=== PATIENT | female | born 1995 | race Two or more races ===

== ENCOUNTER 2020-12-14 02:11 | Emergency (ER) | payer MEDICAID, OTHER ==
[~2020-12-14] VITALS: Ht 162.6 cm; Wt 63.5 kg
[2020-12-14 03:20] VITALS: BP 135/79
[2020-12-14] MEDS ORDERED: SODIUM CHLORIDE 0.9% 3,000 ML IV ONE (03:30)
[2020-12-14 04:25] LABS: Basophils # (auto) 0 10 ^3/uL (0-0.2); Basophils % (auto) 0.3 % (0.0-2.0); Eosinophils # (auto) 0 10 ^3/uL (0-0.8); Eosinophils % (auto) 0.5 % (0.0-7.0); Hematocrit 46.1 % (36.0-46.0); Hemoglobin 15.7 g/dL (12.2-16.2); Lymphocytes # (auto) 2.2 10 ^3/uL (0.4-5.4); Lymphocytes % (auto) 25.5 % (10.0-50.0); Mean Corpuscular Hemoglobin 29.6 pg (28.0-32.0); Mean Corpuscular Hgb Conc. 34.1 g/dL (32.0-36.0); Mean Corpuscular Volume 86.9 fL (80.0-100.0); Monocytes # (auto) 0.3 10 ^3/uL (0-1.3); Monocytes % (auto) 3.6 % (0.0-12.0); Neutrophils # (auto) 5.9 10 ^3/uL (1.6-8.6); Neutrophils % (auto) 70.1 % (37.0-80.0); Nucleated Red Blood Cells % 0.4 %; Platelet Count (auto) 407 10^3/uL (140-450); Red Cell Distribution Width 13.2 % (11.8-14.3); White Blood Cell 8.4 10^3/uL (4.4-10.8)
[2020-12-14 04:55] LABS: Potassium 3.3 mmol/L (3.5-5.1)
[2020-12-14 04:58] LABS: Albumin 4.8 g/dL (3.4-5.0); BUN/Creatinine Ratio 17.4; Calcium 8.8 mg/dL (8.5-10.1); Magnesium 2.4 mg/dL (1.6-2.6)
[2020-12-14 05:01] LABS: Bilirubin, Total 0.3 mg/dL (0.2-1.0); Total Protein 9.8 g/dL (6.4-8.2)
[2020-12-14 05:06] LABS: Salicylate < 1.7 mg/dL (2.8-20.0)
[2020-12-14 05:08] LABS: Acetaminophen < 2.0 ug/mL (10-30)
== END 2020-12-14 06:42 | disposition home or self-care (01) ==
LOC: EDBD 02:11 → ER 02:11
DX: F10.129 Alcohol abuse with intoxication, unspecified (principal); R41.82 Altered mental status, unspecified; F12.10 Cannabis abuse, uncomplicated; Y90.8 Blood alcohol level of 240 mg/100 ml or more
CPT/HCPCS: 36415; 80053; 80320; 80329; 83735; 85025; 96360; 99283; J7030

== ENCOUNTER 2021-11-02 01:36 | Emergency (ER) | payer MEDICAID ==
[~2021-11-02] VITALS: Ht 157.5 cm; Wt 68.0 kg
[2021-11-02 01:43] VITALS: BP 121/83
[2021-11-02] MEDS ORDERED: AZITHROMYCIN 250 MG TAB PO ONE (03:45)
[2021-11-02] MEDS ORDERED: cefTRIAXone SOD 500 MG VL IM ONE (03:45)
== END 2021-11-02 04:45 | disposition home or self-care (01) ==
LOC: ER 01:54
DX: N89.8 Other specified noninflammatory disorders of vagina (principal); F12.10 Cannabis abuse, uncomplicated; Z20.2 Contact with and (suspected) exposure to infections with a predominantly sexual mode of transmission
CPT/HCPCS: 96372; 99283; J0696